=== PATIENT | male | born 1950 | race Caucasian/White ===

== ENCOUNTER 2017-11-08 00:25 | Observation (INO) | payer OTHER ==
[2017-11-08] MEDS ORDERED: NA CHLORIDE 0.9% 1,000 ML ONE (01:31)
[2017-11-08] MEDS ORDERED: NA CHLORIDE 0.9% 500 ML ONE (01:31)
[2017-11-08 01:38] LABS: Absolute Lymphocytes (CBC) 2.3 K/uL (0.7-4.9); Absolute Monocytes 0.9 K/uL (0.1-1.3); Absolute Neutrophil 6.1 K/uL (1.8-8.0); Basophils % 0.8 % (0-1.3); Eosinophils % 2.1 % (0-4.4); Hematocrit 42.5 % (39.6-49.0); Lymphocytes % 24.3 % (15.3-44.8); MCV 95.2 fL (80-100); MPV 10.4 fL (7.6-11.3); RBC Red Blood Cell Count 4.47 M/uL (4.33-5.43)
--- NOTE | 2017-11-08 01:46 | EDPHYS ---
Physician Documentation [facility] Name: Larry Abbott Age: 67 yrs Sex: Male : 1950 Arrival Date: 11/08/2017 Time: 00:30 Bed 26 Private MD: ED Physician David Thompson HPI: 11/08 01:29 This 67 yrs old Male presents to ER via Ambulatory with complaints of Rectal pkl Bleeding. 01:29 The patient presents to the emergency department with bleeding from the rectum/anus, pkl that is moderate. Onset: The symptoms/episode began/occurred this morning. Associate signs and symptoms: Pertinent positives: Syncopal episode. Historical: - Allergies: 00:47 No Known Allergies; bb - Home Meds: 00:47 atorvastatin 40 mg oral tab 1 tab once daily [Active]; Bystolic 10 mg oral tab 1 tab bb once daily [Active]; aspirin 81 mg Oral chew 1 tab once daily [Active]; - PMHx: 00:47 Hypertension; Hyperlipidemia; bb - PSHx: 00:47 colonoscopy; bb - Immunization history:: Adult Immunizations up to date, Flu vaccine is up to date. - Social history:: Smoking status: Patient/guardian denies using tobacco, Patient/guardian denies using alcohol, street drugs. - Ebola Screening: : No symptoms or risks identified at this time. ROS: 01:39 Eyes: Negative for injury, pain, redness, and discharge, ENT: Negative for injury, pkl pain, and discharge, Neck: Negative for injury, pain, and swelling, Cardiovascular: Negative for chest pain, palpitations, and edema, Respiratory: Negative for shortness of breath, cough, wheezing, and pleuritic chest pain. 01:39 Abdomen/GI: Positive for rectal bleeding. 01:39 Back: Negative for acute changes. 01:39 : Negative for urinary symptoms. 01:39 MS/extremity: Negative for acute changes. 01:39 Skin: Negative for rash. 01:39 Neuro: Negative for altered mental status. Exam: 01:39 Head/Face: Normocephalic, atraumatic. Eyes: Pupils equal round and reactive to light, pkl extra-ocular motions intact. Lids and lashes normal. Conjunctiva and sclera are non-icteric and not injected. Cornea within normal limits. Periorbital areas with no swelling, redness, or edema. ENT: Nares patent. No nasal discharge, no septal abnormalities noted. Tympanic membranes are normal and external auditory canals are clear. Oropharynx with no redness, swelling, or masses, exudates, or evidence of obstruction, uvula midline. Mucous membranes moist. Neck: Trachea midline, no thyromegaly or masses palpated, and no cervical lymphadenopathy. Supple, full range of motion without nuchal rigidity, or vertebral point tenderness. No Meningismus. Chest/axilla: Normal chest wall appearance and motion. Nontender with no deformity. No lesions are appreciated. Cardiovascular: Regular rate and rhythm with a normal S1 and S2. No gallops, murmurs, or rubs. Normal PMI, no JVD. No pulse deficits. Respiratory: Lungs have equal breath sounds bilaterally, clear to auscultation and percussion. No rales, rhonchi or wheezes noted. No increased work of breathing, no retractions or nasal flaring. 01:39 Abdomen/GI: Bowel sounds: normal, Palpation: abdomen is soft and non-tender, in all quadrants. 01:39 Back: Exam negative for acute changes. 01:39 : Exam negative for acute changes. 01:39 Musculoskeletal/extremity: Exam is negative for acute changes. 01:39 Skin: Exam negative for rash. 01:39 Neuro: Orientation: is normal, Mentation: is normal, Cranial nerves: grossly normal, Motor: is normal. Vital Signs: 00:47 BP 125 / 84; Pulse 65; Resp 16 S; Pulse Ox 96% on R/A; Weight 106.14 kg (R); Height 5 bb ft. 8 in. (172.72 cm) (R); Pain 0/10; 00:52 Temp 99.4(O); bb 01:40 BP 105 / 61; Pulse 67; Resp 18; Pulse Ox 97% ; ea 02:55 BP 110 / 70; Pulse 70; Resp 18; Pulse Ox 98% ; Pain 0/10; ea 00:47 Body Mass Index 35.58 (106.14 kg, 172.72 cm) bb MDM: 01:05 Patient medically screened. pkl 01:39 Data reviewed: vital signs, nurses notes, lab test result(s), radiologic studies, CT pkl scan. 11/08 01:16 Order name: Amylase, Serum pkl 11/08 01:16 Order name: Basic Metabolic Panel pkl 11/08 01:16 Order name: CBC with Diff; Complete Time: 01:45 pkl 11/08 01:16 Order name: Creatinine for Radiology; Complete Time: 01:45 pkl 11/08 01:16 Order name: Hepatic Function pkl 11/08 01:16 Order name: Lipase pkl 11/08 01:16 Order name: Urine Microscopic Only pkl 11/08 01:16 Order name: Type And Screen pkl 11/08 01:16 Order name: CT Abd/Pelvis - W/Contrast pkl 11/08 05:52 Order name: ABO/RH no charge EDMS 11/08 05:54 Order name: Urine Dipstick--Ancillary (enter results) ms 11/08 06:00 Order name: Urine Dipstick-Ancillary EDCA 11/08 06:52 Order name: Hemoglobin EDCA 11/08 06:52 Order name: Hematocrit EDCA 11/08 01:16 Order name: IV Saline Lock; Complete Time: 01:18 pkl 11/08 01:16 Order name: Labs collected and sent; Complete Time: 01:25 pkl 11/08 01:16 Order name: Urine Dipstick-Ancillary (obtain specimen); Complete Time: 06:37 pkl Administered Medications: 01:34 Drug: NS 0.9% 500 ml Route: IV; Rate: bolus; Site: right antecubital; ea 02:04 Follow up: Response: No adverse reaction; IV Status: Completed infusion; IV Intake: ea 500ml 02:05 Drug: NS 0.9% 1000 ml Route: IV; Rate: 125 ml/hr; Site: right antecubital; ea 04:13 Follow up: Response: No adverse reaction; IV Status: Infusion continued upon admission ea Disposition: 11/08/17 01:45 Hospitalization ordered by Lin Dodd for Observation. Preliminary diagnosis is Rectal bleeding. S/P Colonoscopy with biopsy. Syncopal episode. - Bed requested for Telemetry/MedSurg (observation). - Status is Observation. sv - Condition is Stable. - Problem is new. - Symptoms are unchanged. UTI on Admission? No Signatures: Dispatcher [employer] EDAzucena Patel RN RN sv Woody, Diana, RN RN dw Lam, Pin, MD MD pkl Juana Varner RN RN bb Tovar, Yvonne ms Lamar Stinson RN RN ea Corrections: (The following items were deleted from the chart) 05:39 01:45 Hospitalization Ordered by Lin Dodd MD for Observation. Preliminary ms diagnosis is Rectal bleeding. S/P Colonoscopy with biopsy. Syncopal episode. Bed requested for Telemetry/MedSurg (observation). Status is Observation. Condition is Stable. Problem is new. Symptoms are unchanged. UTI on Admission? No. pkl 07:31 05:39 11/08/2017 01:45 Hospitalization Ordered by Lin Dodd MD for Observation. dw Preliminary diagnosis is Rectal bleeding. S/P Colonoscopy with biopsy. Syncopal episode. Bed requested for [facility] ER HOLD. Status is Observation. Condition is Stable. Problem is new. Symptoms are unchanged. UTI on Admission? No. ms 08:31 07:31 11/08/2017 01:45 Hospitalization Ordered by Lin Dodd MD for Observation. sv Preliminary diagnosis is Rectal bleeding. S/P Colonoscopy with biopsy. Syncopal episode. Bed requested for Telemetry/MedSurg (observation). Status is Observation. Condition is Stable. Problem is new. Symptoms are unchanged. UTI on Admission? No. dw
--- NOTE | 2017-11-08 01:46 | ER ---
Nurse's Notes [facility] Name: Larry Abbott Age: 67 yrs Sex: Male : 1950 Arrival Date: 11/08/2017 Time: 00:30 Bed 26 Private MD: Diagnosis: Rectal bleeding. S/P Colonoscopy with biopsy. Syncopal episode Presentation: 11/08 00:41 Presenting complaint: Patient states: he had a colonoscopy last with removal bb of a number of polyps today pt started having rectal bleeding felt dizzy and passed out for a moment pt denies hitting his head, pt is still "oozing blood". Transition of care: patient was not received from another setting of care. Onset of symptoms was November 07, 2017. Risk Assessment: Do you want to hurt yourself or someone else? Patient reports no desire to harm self or others. Initial Sepsis Screen: Does the patient meet any 2 criteria? No. Patient's initial sepsis screen is negative. Does the patient have a suspected source of infection? No. Patient's initial sepsis screen is negative. Care prior to arrival: None. 00:41 Method Of Arrival: Ambulatory bb 00:41 Acuity: BRAULIO 2 bb Historical: - Allergies: 00:47 No Known Allergies; bb - Home Meds: 00:47 atorvastatin 40 mg oral tab 1 tab once daily [Active]; Bystolic 10 mg oral tab 1 tab bb once daily [Active]; aspirin 81 mg Oral chew 1 tab once daily [Active]; - PMHx: 00:47 Hypertension; Hyperlipidemia; bb - PSHx: 00:47 colonoscopy; bb - Immunization history:: Adult Immunizations up to date, Flu vaccine is up to date. - Social history:: Smoking status: Patient/guardian denies using tobacco, Patient/guardian denies using alcohol, street drugs. - Ebola Screening: : No symptoms or risks identified at this time. Screenin:46 Abuse screen: Denies threats or abuse. Nutritional screening: No deficits noted. ea Tuberculosis screening: No symptoms or risk factors identified. Fall Risk None identified. Assessment: 00:43 General: Appears uncomfortable, Behavior is calm, cooperative, appropriate for age. ea General: patient denies pain reports his abdomen feels full and bloated. Pain: Denies pain. Neuro: Level of Consciousness is awake, alert, obeys commands, Oriented to person, place, time, situation. Cardiovascular: Patient's skin is warm and dry. Respiratory: Airway is patent Respiratory effort is even, unlabored, Respiratory pattern is regular, symmetrical, Breath sounds are clear bilaterally. GI: Abdomen is distended, Bowel sounds present X 4 quads. Abd is soft and non tender. GI: Reports bloody stool. : No signs and/or symptoms were reported regarding the genitourinary system. EENT: No signs and/or symptoms were reported regarding the EENT system. Derm: Skin is pink, warm \\T\\ dry. 01:35 Reassessment: Patient and/or family updated on plan of care and expected duration. Pain ea level reassessed. Patient is alert, oriented x 3, equal unlabored respirations, skin warm/dry/pink. 02:00 Reassessment: Patient and/or family updated on plan of care and expected duration. Pain ea level reassessed. Patient is alert, oriented x 3, equal unlabored respirations, skin warm/dry/pink. Pt finished drinking contrast, welder tech notified. Vital Signs: 00:47 BP 125 / 84; Pulse 65; Resp 16 S; Pulse Ox 96% on R/A; Weight 106.14 kg (R); Height 5 bb ft. 8 in. (172.72 cm) (R); Pain 0/10; 00:52 Temp 99.4(O); bb 01:40 BP 105 / 61; Pulse 67; Resp 18; Pulse Ox 97% ; ea 02:55 BP 110 / 70; Pulse 70; Resp 18; Pulse Ox 98% ; Pain 0/10; ea 00:47 Body Mass Index 35.58 (106.14 kg, 172.72 cm) bb ED Course: 00:30 Patient arrived in ED. ds1 00:38 Lamar Stinson, RN is Primary Nurse. ea 00:45 Triage completed. bb 00:47 Arm band placed on Patient placed in an exam room, on a stretcher, on pulse oximetry. bb 00:48 Inserted saline lock: 20 gauge in right antecubital area, using aseptic technique. cc1 00:48 Initial lab(s) drawn, by me, held in ED. cc1 00:49 Patient has correct armband on for positive identification. Bed in low position. Call ea light in reach. Side rails up X 1. 01:05 Thompson, Pin, MD is Attending Physician. pkl 01:44 Lin Dodd MD is Hospitalizing Provider. pkl 03:08 Radiology exam delayed due to Finished oral contrast at 0210. kw1 03:[address] via wheelchair. kw1 03:38 CT completed. Patient tolerated procedure well. Patient moved back from CT. kw1 04:45 No provider procedures requiring assistance completed. Patient admitted, IV remains in ea place. Administered Medications: 01:34 Drug: NS 0.9% 500 ml Route: IV; Rate: bolus; Site: right antecubital; ea 02:04 Follow up: Response: No adverse reaction; IV Status: Completed infusion; IV Intake: ea 500ml 02:05 Drug: NS 0.9% 1000 ml Route: IV; Rate: 125 ml/hr; Site: right antecubital; ea 04:13 Follow up: Response: No adverse reaction; IV Status: Infusion continued upon admission ea Intake: 02:04 IV: 500ml; Total: 500ml. ea Outcome: 01:45 Decision to Hospitalize by Provider. pkl 02:00 Instructed on the need for admit. ea 03:00 Admitted to ER Hold. Please see [facility] for further documentation. ea 03:00 Condition: stable 08:01 Admitted to Med/surg accompanied by tech, via stretcher, with chart, Report called to zaria Pelletier 08:31 Patient left the ED. Signatures: Azucena Gonzalez RN David You MD MD pkl Sanford, Demi ds1 Juana Varner RN RN bb Cahoon, Charlie cc1 Lamar Stinson RN RN ea Wilhelm, Kimberly kw1
[2017-11-08 01:49] LABS: ALT/SGPT 36 U/L (12-78); AST/SGOT 16 U/L (15-37); Albumin 3.6 g/dL (3.4-5.0); Alkaline Phosphatase 33 U/L (45-117); Amylase Level 32 U/L (25-115); BUN Blood Urea Nitrogen 19 mg/dL (7-18); Bicarbonate 29 mmol/L (21-32); Bilirubin Direct < 0.1 mg/dL (0-0.2); Bilirubin Total 0.4 mg/dL (0.2-1.0); Glucose Level 127 mg/dL (74-106); Lipase 157 U/L (73-393); Potassium 4.1 mmol/L (3.5-5.1); Protein, Total 7.6 g/dL (6.4-8.2); Sodium Level 139 mmol/L (136-145)
[2017-11-08] MEDS ORDERED: ACETAMINOPHEN 500 MG TAB PO PRN (02:16)
[2017-11-08] MEDS ORDERED: MORPHINE 2 MG/ML SYR IV PRN (02:16)
[2017-11-08] MEDS: NA CHLORIDE 0.9% 1,000 ML IV SCH ×2 (03:00→16:03)
[2017-11-08] MEDS ORDERED: NA CHLORIDE 0.9% 250 ML IV SCH (03:00)
[2017-11-08 06:00] LABS: Urine Blood NEGATIVE (NEG); Urine Glucose NEGATIVE (NEG); Urine Protein NEGATIVE (NEG); Urine Specific Gravity 1.025 (1.005-1.030); Urine pH 5.5 (5.0-7.0)
[2017-11-08 06:04] LABS: Urine Bacteria <20 /HPF (NONE SEEN); Urine RBC NONE SEEN /HPF (NONE SEEN)
[2017-11-08 06:05] LABS: Urine Culture Reflex Order NOT NEEDED
[2017-11-08 06:45] LABS: Hematocrit 37.4 % (39.6-49.0)
--- NOTE | 2017-11-08 07:13 | P.HP ---
Certification for Inpatient Patient admitted to: Inpatient With expected LOS: >2 Midnights Patient will require the following post-hospital care: None Practitioner: I am a practitioner with admitting privileges, knowledge of patient current condition, hospital course, and medical plan of care. Services: Services provided to patient in accordance with Admission requirements found in Title 42 Section 412.3 of the Code of Federal Regulations Patient History Date of Service: 11/08/17 Reason for admission: Lower GI bleeding History of Present Illness: Patient is a 67-year-old gentleman who came to the hospital with complaints of lower GI bleeding. Patient has seen his primary care provider and on review of his records had noted that he had a follow up in the past. His PCP who is located in [facility] decided to get him set up for a colonoscopy. Patient had a colonoscopy performed a week ago. At that time he required 8 polypectomies. Patient did well after the colonoscopy however a few days later he started feeling bloated. Yesterday he started noticing that he was having some blood in his stools. The bleeding became worse and patient became lightheaded and had to kind of kneel on the floor. He does not think he passed out completely. His brought him into the hospital because he was hypotensive. His GI doctor had recommended he get his hemoglobin checked. He came into the hospital and in the ER his hemoglobin was 14.7. We initially decided to admit him to observation but since his hemoglobin dropped more than his blood pressure has been on the lower side of a good admitted for inpatient and get GI consultation. Will do of platelet function assay to see if patient may benefit from platelet transfusion if his hemoglobin continues to drop. Patient did take an aspirin daily for quite a while although he did hold it for the last 48 hr. Allergies No Known Allergies Allergy (Unverified 11/08/17 03:46) - Past Medical/Surgical History Has patient received pneumonia vaccine in the past: No Diabetic: No -: Hypertension -: Hyperlipidemia -: colonoscopy - Family History Father Family History: Reviewed- Non-Contributory - Social History Smoking Status: Never smoker Alcohol use: No CD- Drugs: No Caffeine use: Yes Place of Residence: Home Review of Systems 10-point ROS is otherwise unremarkable Physical Examination - Vital Signs Temperature: 98 F Blood Pressure: 101/70 Pulse: 70 Respirations: 18 Pulse Ox (%): 99 - Physical Exam General: Alert, In no apparent distress, Oriented x3 HEENT: Atraumatic, PERRLA, Mucous membr. moist/pink, EOMI, Sclerae nonicteric Neck: Supple, 2+ carotid pulse no bruit, No LAD, Without JVD or thyroid abnormality Respiratory: Clear to auscultation bilaterally, Normal air movement Cardiovascular: Regular rate/rhythm, Normal S1 S2, No murmurs Gastrointestinal: Normal bowel sounds, Soft and benign, Non-distended, No tenderness, No rebound, No guarding Musculoskeletal: No clubbing, No swelling, No tenderness Integumentary: No rashes Neurological: Normal gait, Normal speech, Normal strength at 5/5 x4 extr, Normal tone, Sensation intact, Cranial nerves 3-12 intact, Normal affect Lymphatics: No axilla or inguinal lymphadenopathy - Studies Laboratory Data (last 24 hrs) 11/08/17 01:10: Creatinine 1.30 11/08/17 01:10: WBC 9.6, Hgb 14.7, Hct 42.5, Plt Count 202 11/08/17 01:10: Sodium 139, Potassium 4.1, BUN 19 H, Creatinine 1.30, Glucose 127 H, Total Bilirubin 0.4, AST 16, ALT 36, Alkaline Phosphatase 33 L, Amylase 32, Lipase 157 Assessment & Plan - Plan Assessment: 1. Lower GI bleeding 2. History of hypertension 3. History of dyslipidemia 4. Recent colonoscopy with polypectomy x8 5. History of aspirin use Plan: 1. Continue with IV hydration and PPI twice daily 2. Continue with IV antibiotics 3. Continue with pain control 4. NPO 5. GI consultation 6. Serial H&H, and we will monitor platelet function assay; 7. Will give pathology result from Gastroenterology 8. GI and DVT prophylaxis Discharge Plan: Home Plan to discharge in: Greater than 2 days - Advance Directives Does patient have a Living Will: No Does patient have a Durable POA for Healthcare: No - Code Status/Comfort Care Code Status Assessed: Yes Code Status: Full Code Critical Care: No Time Spent Managing PTS Care (In Minutes): 50
[2017-11-08] MEDS ORDERED: Levofloxacin500mg IV 500 MG/100 ML BAG IV ONE (07:32)
[2017-11-08] MEDS: Levofloxacin500mg IV 500 MG/100 ML BAG IV SCH (07:57)
--- NOTE | 2017-11-08 08:34 | RAD REPORT ---
EXAM DESCRIPTION: CTAbdomen Pelvis W Contrast - 11/08/2017 6:42 am CLINICAL HISTORY: Abdominal pain. rectal bleeding COMPARISON: No comparisons TECHNIQUE: Biphasic CT imaging of the abdomen and pelvis was performed with 100 ml non-ionic IV cont rast. All CT scans are performed using dose optimization technique as appropriate and may include automated exposure control or mA/KV adjustment according to patient size. FINDINGS: The lung bases are clear. The liver demonstrates diffuse fatty liver. The spleen, pancreas, adrenal glands and kidneys are with in normal limits. No bowel obstruction, free air, free fluid or abscess. Small areas of omental infarction suspected, l argest in the left upper quadrant omental fat. The appendix is normal. No evidence of significant ly mphadenopathy. Fat containing left inguinal hernia. Small fat containing umbilical hernia. No suspicious bony findings. IMPRESSION: No acute intra-abdominal or pelvic finding.
[2017-11-08] MEDS: METRONIDAZOLE 500mg IVPB 500 MG/100 ML BAG IV SCH ×2 (08:38→16:03)
[2017-11-08] MEDS: PANTOPRAZOLE 40 MG INJ IVP SCH ×2 (08:39→21:49)
[2017-11-08] MEDS ORDERED: PNEUMOCOCCAL VACCINE 0.5 ML IMVAC ONE (10:00)
[2017-11-08 11:01] LABS: Absolute Lymphocytes (CBC) 2.2 K/uL (0.7-4.9); Absolute Monocytes 0.7 K/uL (0.1-1.3); Basophils % 0.9 % (0-1.3); Eosinophils % 2.4 % (0-4.4); Hematocrit 40.9 % (39.6-49.0); Lymphocytes % 27.3 % (15.3-44.8); MCH 33.1 pg (27.0-35.0); MCV 95.5 fL (80-100); MPV 9.7 fL (7.6-11.3); RBC Red Blood Cell Count 4.28 M/uL (4.33-5.43)
[2017-11-08 11:13] LABS: Potassium 4.2 mmol/L (3.5-5.1)
[2017-11-08 11:26] LABS: COL/ADP 68 SECONDS (56-102); COL/EPI 89 SECONDS (80-184)
[2017-11-08] MEDS ORDERED: ATORVASTATIN 40 MG TAB PO SCH (21:00)
[2017-11-09] MEDS: METRONIDAZOLE 500mg IVPB 500 MG/100 ML BAG IV SCH ×2 (01:55→08:15)
[2017-11-09] MEDS: NA CHLORIDE 0.9% 1,000 ML IV SCH (06:09)
[2017-11-09] MEDS: Levofloxacin500mg IV 500 MG/100 ML BAG IV SCH (08:15)
[2017-11-09] MEDS: PANTOPRAZOLE 40 MG INJ IVP SCH (08:16)
[2017-11-09] MEDS ORDERED: NEBIVOLOL HCL 5 MG TAB PO SCH (09:00)
[2017-11-09 10:54] LABS: Absolute Lymphocytes (CBC) 1.5 K/uL (0.7-4.9); Absolute Monocytes 0.4 K/uL (0.1-1.3); Absolute Neutrophil 4.5 K/uL (1.8-8.0); Eosinophils % 2.2 % (0-4.4); Hematocrit 40.2 % (39.6-49.0); Lymphocytes % 22.6 % (15.3-44.8); MCH 33.1 pg (27.0-35.0); MPV 9.6 fL (7.6-11.3); Monocytes % 6.6 % (3.3-12.3); RBC Red Blood Cell Count 4.19 M/uL (4.33-5.43)
--- NOTE | 2017-11-09 11:05 | EKG ---
Test Date: 2017-11-09 Test Time: 02:57:27 Campus Recruiting Intern: RT-O MEASUREMENT RESULTS: Intervals: Rate: 52 WV: 162 QRSD: 102 QT: 468 QTc: 435 [place]: P: 60 WV: 162 QRS: 38 T: 48 INTERPRETIVE STATEMENTS: Sinus bradycardia Otherwise normal ECG No previous ECG available for comparison Electronically Signed On 11-09-17 11:03:37 CDT by Stanley Ruiz
--- NOTE | 2017-11-09 14:44 | P.SSS ---
Patient History Date of Service: 11/09/17 Reason for admission: Lower GI bleeding History of Present Illness: Patient is a 67-year-old gentleman who came to the hospital with complaints of lower GI bleeding. Patient has seen his primary care provider and on review of his records had noted that he had a follow up in the past. His PCP who is located in [facility] see decided to get him set up for a colonoscopy. Patient had a colonoscopy performed a week ago. At that time he required 8 polypectomies. Patient did well after the colonoscopy however a few days later he started feeling bloated. Yesterday he started noticing that he was having some blood in his stools. The bleeding became worse and patient became lightheaded and had to kind of kneel on the floor. He does not think he passed out completely. His brought him into the hospital because he was hypotensive. His GI doctor had recommended he get his hemoglobin checked. He came into the hospital and in the ER his hemoglobin was 14.7. We initially decided to admit him to observation but since his hemoglobin dropped more than his blood pressure has been on the lower side of a good admitted for inpatient and get GI consultation. Will do of platelet function assay to see if patient may benefit from platelet transfusion if his hemoglobin continues to drop. Patient did take an aspirin daily for quite a while although he did hold it for the last 48 hr. Allergies No Known Allergies Allergy (Verified 11/08/17 11:32) Home Medications: Atorvastatin Calcium 40 mg PO DAILY 11/08/17 Nebivolol HCl [Bystolic*] 10 mg PO DAILY 11/08/17 Pantoprazole Sodium [Protonix] 40 mg PO DAILY #30 tablet. 11/09/17 - Past Medical/Surgical History Has patient received pneumonia vaccine in the past: No Diabetic: No -: Hypertension -: Hyperlipidemia -: colonoscopy - Social History Smoking Status: Never smoker Alcohol use: No CD- Drugs: No Caffeine use: Yes Place of Residence: Home Review of Systems 10-point ROS is otherwise unremarkable Physical Examination - Vital Signs Temperature: 98.6 F Blood Pressure: 119/74 Pulse: 69 Respirations: 18 Pulse Ox (%): 97 - Physical Exam General: Alert, In no apparent distress HEENT: Atraumatic, PERRLA, Mucous membr. moist/pink, EOMI, Sclerae nonicteric Neck: Supple, 2+ carotid pulse no bruit, No LAD, Without JVD or thyroid abnormality Respiratory: Clear to auscultation bilaterally, Normal air movement Cardiovascular: Regular rate/rhythm, Normal S1 S2 Gastrointestinal: Normal bowel sounds, No tenderness Musculoskeletal: No tenderness Integumentary: No rashes Neurological: Normal gait, Normal speech, Normal strength at 5/5 x4 extr, Normal tone, Normal affect Lymphatics: No axilla or inguinal lymphadenopathy - Diagnosis (Problem(s)) (1) Lower gastrointestinal bleed Onset Date: 11/09/17 Status: Acute Treatment Summary: Overall during the hospital stay patient remained stable Patient was initially admitted to the hospital for rectal bleeding status post colonoscopy. Patient was started on IV fluids here in the hospital along with IV Protonix. Patient had marked improvement in his symptoms and was not having any further bleeding. Only noted having some specks of blood off while he was wiping himself on the tissue. GI was consulted here is the recommended that patient be switched over to oral Protonix and can be discharged home safely and will have outpatient followup. Patient to follow up in about 1-2 weeks post discharge with GI for further treatment. Patient was advised that if there is any worsening of the rectal bleeding to come back to the ER for further workup. Patient demonstrated understanding and thus was discharged home under stable condition - Disposition Disposition: ROUTINE DISCHARGE Condition: GOOD Patient Discharge Instructions: Please f.u with PCP and Dr Petit in 1 to 2 week post discharge. New medication. Protonix 40mg daily Diet: Regular Activity: Ad naheed
== END 2017-11-09 13:50 | disposition home or self-care (01) ==
LOC: ER 00:25 → ERHOLD 01:47 → INTOOBSV 07:08 → OBSVTOIN 07:08 → 4TH 07:36
PROVIDERS: ADMIT Hospitalist; ATTEND Hospitalist
DX: K92.1 Melena (principal); I10 Essential (primary) hypertension; E78.5 Hyperlipidemia, unspecified
CPT/HCPCS: 36415 ×2; 74177; 80048 ×3; 80076; 82150; 83690; 85014; 85018; 85025 ×3; 85576 ×2; 86850; 86900; 86901; 93005; 96360; 96361 ×2; 99285; C9113 ×3; G0378 ×2; J7030 ×3; Q9967; 81003; 81015; J2270